=== PATIENT | female | born 1940 | race Caucasian/White ===

== ENCOUNTER → 2018-03-10 12:58 | Outpatient (CLI) | payer MEDICARE, BC, SELFPAY ==
[2018-03-10 13:26] LABS: Abs Immature Grans 0.01 k/cumm (0.0-0.09); Absolute Basophil Count 0.02 k/cumm (0.0-0.2); Absolute Eosinophil Count 0.07 k/cumm (0.0-0.7); Absolute Lymphocyte Count 1.42 k/cumm (1.2-3.4); Absolute Monocyte Count 0.45 k/cumm (0.11-0.7); Basophils % 0.4; Eosinophils % 1.3; HCT 36.6 % (36.0-46.0); HGB 12.3 g/dL (12.0-15.5); Immature Grans % 0.2; Lymphocytes % 26.4; Mean Corp. HGB Concentration 33.6 g/dL (32.0-36.0); Mean Corpuscular Hemoglobin 34.3 pg (27.0-33.0); Mean Corpuscular Volume 101.9 fL (80-95); Mean Platelet Volume 11.1 fL (8.0-11.0); Monocytes % 8.4; Neutrophils % 63.3; RBC 3.59 m/cumm (4.00-5.20); RBC Distribution Width 12.9 % (11.7-14.6); White Blood Cell Count 5.37 k/cumm (4.4-10.8)
[2018-03-10 13:59] LABS: Diff Comment PLT Morph Reviewed; Macrocytosis 1+; Platelet Count 74 x1000/uL (130-400)
== END ==
PROVIDERS: PCP Family Medicine; Visit Provider Internal Medicine Hematology & Oncology
DX: C50.912 Malignant neoplasm of unspecified site of left female breast (principal); D69.3 Immune thrombocytopenic purpura; Z17.0 Estrogen receptor positive status [ER+]
CPT/HCPCS: 36415; 85025

== ENCOUNTER 2018-06-14 18:34 | Outpatient (REF) | payer MEDICARE, BC, SELFPAY ==
--- NOTE | 2018-06-14 13:08 | SKI_PTH ---
PATIENT: LAKISHA FAIRBANKS LOC: [facility] U#:[id number] AGE/SX: 77/F ROOM: RE06/14/[address]: Enmanuel Bee DO : 1940 BED: DIS: 06/14/2018 SPEC #: [id number] RECD: 06/14/18 18:51 STATUS: MANJEET REQ #: [id number] IVON: 06/14/18 13:[address]: Enmanuel Bee DEPT: Surgical Specimen RECD BY: Alvina Olson ENTERED: 06/14/18 18:51 SP TYPE: BRITTNI EDOMND DR: Adrian Anthony DO Tissues: 1 - SKIN BIOPSY(SHAVE/PUNCH) Procedures: SKIN LEVEL 4 Comments: [id number]
== END 2018-06-14 18:54 ==
LOC: LBN 18:34
PROVIDERS: PCP Family Medicine; Visit Provider Otolaryngology Otolaryngology/Facial Plastic Surgery
DX: L57.0 Actinic keratosis (principal)
CPT/HCPCS: 88305

== ENCOUNTER 2018-06-18 00:55 | Outpatient (CLI) | payer MEDICARE, BC, SELFPAY ==
[2018-06-18 07:49] LABS: Abs Immature Grans 0.01 k/cumm (0.0-0.09); Absolute Basophil Count 0.04 k/cumm (0.0-0.2); Absolute Eosinophil Count 0.06 k/cumm (0.0-0.7); Absolute Lymphocyte Count 1.46 k/cumm (1.2-3.4); Absolute Monocyte Count 0.42 k/cumm (0.11-0.7); Absolute Neutrophil Count 3.35 k/cumm (1.2-6.7); Basophils % 0.7; Eosinophils % 1.1; HCT 37.7 % (36.0-46.0); HGB 12.6 g/dL (12.0-15.5); Immature Grans % 0.2; Lymphocytes % 27.3; Mean Corp. HGB Concentration 33.4 g/dL (32.0-36.0); Mean Corpuscular Hemoglobin 33.9 pg (27.0-33.0); Mean Corpuscular Volume 101.3 fL (80-95); Mean Platelet Volume 11.9 fL (8.0-11.0); Monocytes % 7.9; Neutrophils % 62.8; RBC 3.72 m/cumm (4.00-5.20); RBC Distribution Width 12.8 % (11.7-14.6); White Blood Cell Count 5.34 k/cumm (4.4-10.8)
[2018-06-18 09:20] LABS: Platelet Count 48 x1000/uL (130-400)
== END 2018-06-18 01:15 ==
PROVIDERS: PCP Family Medicine; Visit Provider Internal Medicine Hematology & Oncology
DX: D69.3 Immune thrombocytopenic purpura (principal)
CPT/HCPCS: 36415; 85025

== ENCOUNTER 2018-07-07 01:57 | Outpatient (CLI) | payer MEDICARE, BC, SELFPAY ==
[2018-07-07 11:58] LABS: Abs Immature Grans 0.01 k/cumm (0.0-0.09); Absolute Basophil Count 0.03 k/cumm (0.0-0.2); Absolute Eosinophil Count 0.06 k/cumm (0.0-0.7); Absolute Lymphocyte Count 1.71 k/cumm (1.2-3.4); Absolute Monocyte Count 0.46 k/cumm (0.11-0.7); Absolute Neutrophil Count 3.32 k/cumm (1.2-6.7); Basophils % 0.5; Eosinophils % 1.1; HCT 38.6 % (36.0-46.0); HGB 12.8 g/dL (12.0-15.5); Immature Grans % 0.2; Lymphocytes % 30.6; Mean Corp. HGB Concentration 33.2 g/dL (32.0-36.0); Mean Corpuscular Hemoglobin 33.4 pg (27.0-33.0); Mean Corpuscular Volume 100.8 fL (80-95); Mean Platelet Volume 10.4 fL (8.0-11.0); Monocytes % 8.2; Neutrophils % 59.4; Platelet Count 118 x1000/uL (130-400); RBC 3.83 m/cumm (4.00-5.20); RBC Distribution Width 12.7 % (11.7-14.6); White Blood Cell Count 5.59 k/cumm (4.4-10.8)
== END 2018-07-07 02:17 ==
PROVIDERS: PCP Family Medicine; Visit Provider Internal Medicine Hematology & Oncology
DX: D69.3 Immune thrombocytopenic purpura (principal)
CPT/HCPCS: 36415; 85025

== ENCOUNTER 2018-10-07 08:40 | Outpatient (CLI) | payer MEDICARE, BC, SELFPAY ==
[2018-10-07 11:10] LABS: Abs Immature Grans 0.01 k/cumm (0.0-0.09); Absolute Basophil Count 0.05 k/cumm (0.0-0.2); Absolute Eosinophil Count 0.08 k/cumm (0.0-0.7); Absolute Lymphocyte Count 1.47 k/cumm (1.2-3.4); Absolute Monocyte Count 0.37 k/cumm (0.11-0.7); Absolute Neutrophil Count 3.95 k/cumm (1.2-6.7); Basophils % 0.8; Eosinophils % 1.3; HCT 37.6 % (36.0-46.0); HGB 12.6 g/dL (12.0-15.5); Immature Grans % 0.2; Lymphocytes % 24.8; Mean Corp. HGB Concentration 33.5 g/dL (32.0-36.0); Mean Corpuscular Hemoglobin 33.2 pg (27.0-33.0); Mean Corpuscular Volume 98.9 fL (80-95); Mean Platelet Volume 11.3 fL (8.0-11.0); Monocytes % 6.2; Neutrophils % 66.7; RBC Distribution Width 12.9 % (11.7-14.6); White Blood Cell Count 5.93 k/cumm (4.4-10.8)
[2018-10-07 11:34] LABS: Platelet Count 53 x1000/uL (130-400)
== END 2018-10-07 09:00 ==
PROVIDERS: PCP Family Medicine; Visit Provider Internal Medicine Hematology & Oncology
DX: D69.3 Immune thrombocytopenic purpura (principal)
CPT/HCPCS: 36415; 85025

== ENCOUNTER 2018-12-29 07:56 | Outpatient (CLI) | payer MEDICARE, BC, SELFPAY ==
[2018-12-29 10:34] LABS: Abs Immature Grans 0.01 k/cumm (0.0-0.09); Absolute Basophil Count 0.04 k/cumm (0.0-0.2); Absolute Eosinophil Count 0.17 k/cumm (0.0-0.7); Absolute Lymphocyte Count 1.39 k/cumm (1.2-3.4); Absolute Monocyte Count 0.56 k/cumm (0.11-0.7); Basophils % 0.6; Eosinophils % 2.7; HCT 37.7 % (36.0-46.0); HGB 12.6 g/dL (12.0-15.5); Immature Grans % 0.2; Lymphocytes % 21.8; Mean Corp. HGB Concentration 33.4 g/dL (32.0-36.0); Mean Corpuscular Hemoglobin 33.4 pg (27.0-33.0); Monocytes % 8.8; Neutrophils % 65.9; Platelet Count 50 x1000/uL (130-400); RBC 3.77 m/cumm (4.00-5.20); White Blood Cell Count 6.37 k/cumm (4.4-10.8)
[2018-12-29 11:50] LABS: Diff Comment Diff Reviewed; Mean Platelet Volume 11.7 fL (8.0-11.0); RBC Morphology Normal
== END 2018-12-29 08:16 ==
PROVIDERS: PCP Family Medicine; Visit Provider Internal Medicine Hematology & Oncology
DX: D69.3 Immune thrombocytopenic purpura (principal)
CPT/HCPCS: 36415; 85025

== ENCOUNTER 2019-02-08 16:54 | Outpatient (CLI) | payer MEDICARE, BC, SELFPAY ==
--- NOTE | 2019-02-08 14:03 | DI.RAD_ITS ---
SYMPTOMS/DIAGNOSIS: 5TH METATARSAL PAIN S/P TRAUMA, M79.671, ? FX RIGHT FOOT: Three views. There is a nondisplaced fracture involving the distal metaphysis of the proximal phalanx of the right 5th toe. No other fracture or dislocation is seen. There is a well-circumscribed lucency in the proximal phalanx of the great toe. Mild degenerative changes are seen at the 1st metatarsophalangeal joint. No radiopaque foreign bodies are seen in the soft tissues. IMPRESSION: Nondisplaced fracture involving the proximal phalanx of the right 5th toe.
== END 2019-02-08 17:14 ==
PROVIDERS: PCP Family Medicine; Visit Provider Family Medicine
DX: M79.671 Pain in right foot (principal); S92.514A Nondisplaced fracture of proximal phalanx of right lesser toe(s), initial encounter for closed fracture
CPT/HCPCS: 73630

== ENCOUNTER 2019-03-30 08:52 | Outpatient (CLI) | payer MEDICARE, BC, SELFPAY ==
[2019-03-30 14:13] LABS: Abs Immature Grans 0.01 k/cumm (0.0-0.09); Absolute Basophil Count 0.04 k/cumm (0.0-0.2); Absolute Eosinophil Count 0.07 k/cumm (0.0-0.7); Absolute Lymphocyte Count 1.65 k/cumm (1.2-3.4); Absolute Neutrophil Count 3.19 k/cumm (1.2-6.7); Basophils % 0.7; Eosinophils % 1.3; HCT 36.4 % (36.0-46.0); HGB 12.4 g/dL (12.0-15.5); Immature Grans % 0.2; Lymphocytes % 30.8; Mean Corp. HGB Concentration 34.1 g/dL (32.0-36.0); Mean Corpuscular Volume 99.7 fL (80-95); Mean Platelet Volume 10.9 fL (8.0-11.0); Monocytes % 7.5; Neutrophils % 59.5; RBC 3.65 m/cumm (4.00-5.20); RBC Distribution Width 12.7 % (11.7-14.6); White Blood Cell Count 5.36 k/cumm (4.4-10.8)
[2019-03-30 14:35] LABS: Polychromasia Present
[2019-03-30 14:36] LABS: Howell-Jolly Bodies Present
[2019-03-30 14:37] LABS: Platelet Count 62 x1000/uL (130-400)
== END 2019-03-30 09:12 ==
PROVIDERS: PCP Family Medicine; Visit Provider Internal Medicine Hematology & Oncology
DX: D69.3 Immune thrombocytopenic purpura (principal)
CPT/HCPCS: 36415; 85025